=== PATIENT | female | born 1960 | race Caucasian/White ===

== ENCOUNTER 2022-04-10 08:59 | Outpatient (CLI) | payer BC, SELFPAY ==
[2022-04-10 12:18] LABS: Albumin* 4.2 g/dL (3.3-5.0); Chloride* 108 mmol/L (96-114)
[2022-04-10 12:19] LABS: Sodium* 139 mmol/L (135-149)
[2022-04-10 12:20] LABS: Potassium* 4.9 mmol/L (3.6-5.1)
[2022-04-10 12:21] LABS: Cholesterol* 233 mg/dL (90-199); Creatinine* 0.7 mg/dL (0.5-1.5); Estimated Glomerular Filt Rate 100 ml/min
[2022-04-10 12:22] LABS: Alanine Aminotransferase* 19 U/L (4-35); Alkaline Phosphatase* 39 U/L (40-150); Aspartate Amino Transferase* 24 U/L (12-35); Bilirubin Total* 0.8 mg/dL (0.1-1.5); Blood Urea Nitrogen* 15 mg/dL (7-30); Carbon Dioxide* 26 mmol/L (20-32); Glucose* 90 mg/dL (60-115); Triglycerides* 83 mg/dL (40-149)
[2022-04-10 12:23] LABS: Calcium* 9.2 mg/dL (8.4-10.6); HDL Cholesterol* 54 mg/dL (>=50); LDL Cholesterol Calculated 162 mg/dL (<100)
[2022-04-10 12:25] LABS: C Reactive Protein* 0.6 mg/dL (0.5-1.0)
[2022-04-10 12:55] LABS: Hepatitis C Virus Antibody* Negative (Negative)
[2022-04-12 09:23] LABS: Anti-Nuclear Ab(ANA)IgG ELISA None Detected (None Detected)
== END 2022-04-10 09:00 | disposition home or self-care (01) ==
PROVIDERS: Visit Provider Family Medicine
DX: Z00.00 Encounter for general adult medical examination without abnormal findings (principal); R63.5 Abnormal weight gain; R53.83 Other fatigue; E05.90 Thyrotoxicosis, unspecified without thyrotoxic crisis or storm; M25.50 Pain in unspecified joint; Z11.59 Encounter for screening for other viral diseases; Z13.6 Encounter for screening for cardiovascular disorders
CPT/HCPCS: 80053; 80061; 84443; 86039; 86140; 86803

== ENCOUNTER 2022-06-12 14:46 | Outpatient (CLI) | payer BC, SELFPAY ==
--- NOTE | 2022-06-12 15:00 | CRLHL7_ITS ---
For Patients: As a result of the Century Cures Act, medical imaging exams and procedure reports are released immediately into your electronic medical record. You may view this report before your referring provider. If you have questions, please contact your health care provider. BILATERAL SCREENING MAMMOGRAM WITH COMPUTER-AIDED DETECTION AND TOMOSYNTHESIS TECHNIQUE: CC and MLO views were obtained. These mammographic images have been obtained using full-field digital technique. These mammographic images were interpreted with the benefit of computer-aided detection. Breast Tomosynthesis was used in this interpretation. COMPARISON FILM: 12/19/19. FINDINGS: The breasts are heterogeneously dense, which may obscure small masses IMPRESSION: There is no radiographic evidence for malignancy. ASSESSMENT: BI-RADS Category 1: Negative RECOMMENDATION: Routine screening mammogram in 1 year. A lay language report of this examination will be provided to the patient. Reginaldo Chris M.D. Diagnostic Radiologist [email or web address] DIANA/Dictated by: Reginaldo Chris MD @ 06/13/2022 8:46:00 AM (Electronically Signed)
== END 2022-06-12 14:47 | disposition home or self-care (01) ==
LOC: MAMMO 14:47
PROVIDERS: Visit Provider Obstetrics & Gynecology
DX: Z12.31 Encounter for screening mammogram for malignant neoplasm of breast (principal); R92.2 Inconclusive mammogram
CPT/HCPCS: 77063; 77067

== ENCOUNTER 2023-01-05 19:10 | Outpatient (CLI) | payer BC, SELFPAY ==
--- NOTE | 2023-01-13 08:23 | W.PM.SLEEP ---
Sleep Study Details Details Interpreting Provider: Gagandeep Date of Sleep Study: 01/05/23 Sleep Study Details: STUDY TYPE:? Home unattended ? BMI:? 25.8 ORDERING PROVIDER:So Donis INDICATION:? Concerns about sleep apnea ? SLEEP SUMMARY:? 519 minutes monitored RESPIRATORY SUMMARY:? AHI 3.5, supine AHI 7.4, left lateral 2.1, right lateral 1.3 Low oxygen 87 4.6% of the study or 24 minutes oxygen was below 90% Snoring 23.4% PERIODIC LIMB MOVEMENTS OF SLEEP:? Not recorded during home study CARDIAC:? Range 58-93, mean 67.6 IMPRESSION:? The overall study is within normal limits however the patient has mild sleep apnea in the supine position and also significant desaturations with 4.6% of the study oxygen level was less than 90%. RECOMMENDATION: Would recommend trial of nonsupine sleep. If the patient tolerates that I would recommend a repeat overnight oximetry.
== END 2023-01-05 19:11 | disposition home or self-care (01) ==
LOC: SLEEP 19:11
PROVIDERS: Visit Provider Otolaryngology
DX: G47.33 Obstructive sleep apnea (adult) (pediatric) (principal)
CPT/HCPCS: 95806

== ENCOUNTER 2023-06-15 14:51 | Outpatient (CLI) | payer BC, SELFPAY ==
--- NOTE | 2023-06-15 15:20 | MM_ITS ---
Patient: CANDELARIA AVENDAÑO Facility:?[facility] Patient ID:?[id number] Site Patient ID:?[id number]. Site :?[id number] Study:?XRay-Breast Bilateral 3D W/CAD-06/15/2023 3:23:29 PM Ordering Physician:El Martínez Final Report: BILATERAL SCREENING MAMMOGRAM WITH COMPUTER-AIDED DETECTION AND TOMOSYNTHESIS TECHNIQUE: CC and MLO views were obtained. These mammographic images have been obtained using full-field digital technique. These mammographic images were interpreted with the benefit of computer-aided detection. Breast Tomosynthesis was used in this interpretation. COMPARISON FILM: 06/12/22, 12/19/19. FINDINGS: There are scattered areas of fibroglandular density. IMPRESSION: There is no radiographic evidence for malignancy. ASSESSMENT: BI-RADS Category 1: Negative RECOMMENDATION: Routine screening mammogram in 1 year. A lay language report of this examination will be provided to the patient. Reginaldo Chris M.D. Diagnostic Radiologist [email or web address] AWA/sp R& Transcribed: 2:17 p.m. SP/Dictated by: Reginaldo Chris MD @ 06/16/2023 8:46:00 AM Signed by:?Reginaldo Chris MD @06/16/2023 3:20:09 PM (Electronic Signature)
== END 2023-06-15 14:52 | disposition home or self-care (01) ==
LOC: MAMMO 14:53
PROVIDERS: PCP Family Medicine; Visit Provider Orthopaedic Surgery
DX: Z12.31 Encounter for screening mammogram for malignant neoplasm of breast (principal)
CPT/HCPCS: 77063; 77067

== ENCOUNTER 2023-10-14 08:08 | Outpatient (CLI) | payer BC, SELFPAY ==
--- NOTE | 2023-10-14 08:30 | CRLHL7_ITS ---
For Patients: As a result of the Century Cures Act, medical imaging exams and procedure reports are released immediately into your electronic medical record. You may view this report before your referring provider. If you have questions, please contact your health care provider. DXA BONE MINERAL DENSITY STUDY Reason for exam: Screening. Family history of osteoporosis. Current height (in): 66. Weight (lb): 145. Menopause age: 62. Ethnicity: White. 1. Have you had a previous hip or vertebral fracture? No. 2. Have you had any fractures during your adult life which did not result from significant trauma (e.g., auto accident)? No. 3. Did either of your parents have a hip fracture? No. 4. Do you smoke? No. 5. Have you ever taken Glucocorticoids? No. 6. Do you have rheumatoid arthritis? No. 7. Do you have secondary osteoporosis? No. 8. Do you drink 3 or more alcoholic drinks per day? No. 9. Are you being treated for osteoporosis? No. 10. Have you ever taken any of the following medications: Actonel, Evista, Fosamax, Miacalcin, Reclast, Boniva, Forteo, HRT (i.e., estrogen/hormone therapy), Protelos, Prolia, Vitamin D, Calcium, other ??? please specify. ANSWER: Yes, vitamin D, HRT (i.e., estrogen/hormone therapy), and calcium. 11. Do you have any of the following medical conditions: Anorexia or bulimia, asthma or emphysema, end stage renal disease, hyperparathyroidism, any seizure disorders, cancer, inflammatory bowel diseases, hysterectomy, other ??? please specify. ANSWER: Yes, hysterectomy. 12. What was your maximum height (inches)? 66. 13. Do you perform weight bearing exercise regularly? Yes. 14. Do you regularly consume dairy products? Yes. 15. Do you drink caffeinated beverages? Yes. 16. At what age did your period start? 19. 17. Are you premenopausal? No. 18. How many full-term pregnancies have you had? 2. 19. Have you ever missed your period for more than 6 months in a row (not including or menopause)? No. TECHNIQUE: Bone mineral density study was performed using the [employer]. FINDINGS: The results of the study expressed as bone mineral density (BMD) are as follows: Lumbar spine L1 to L3: BMD: 1.002 g/cm2. T-score: -0.1. Z-score: 1.3 Neck Left: BMD: 0.775 g/cm2. T-score: -0.7. Z-score: 0.7 Right: BMD: 0.705 g/cm2. T-score: -1.3. Z-score: 0.0 Total Left: BMD: 0.865 g/cm2. T-score: -0.6. Z-score: 0.4 Right: BMD: 0.847 g/cm2. T-score: -0.8. Z-score: 0.2 IMPRESSION: Osteopenia. *Comparison exams done prior to 08/2019 were performed on different unit, [employer]. FRAX 10-year Fracture Risk Major Osteoporotic Fracture: <0.1% Hip Fracture: <0.1% Reported Risk Factors: [place] () Neck BMD=0.705, BMI=23.4.23.4. Reginaldo Chris M.D. Diagnostic Radiologist [email or web address] AWA/stef finch/Dictated by: Reginaldo Chris MD @ 10/15/2023 12:54:00 PM (Electronically Signed)
== END 2023-10-14 08:09 | disposition home or self-care (01) ==
LOC: RAD 08:09
PROVIDERS: PCP Family Medicine; Visit Provider Registered Nurse
DX: M81.0 Age-related osteoporosis without current pathological fracture; Z78.0 Asymptomatic menopausal state
CPT/HCPCS: 77080

== ENCOUNTER 2024-03-15 11:11 | Emergency (ER) | payer OTHER, SELFPAY ==
[2024-03-15 11:11] VITALS: BP 94/36; PULSE 85; RESP 20; O2SAT 95
[2024-03-15 11:34] VITALS: BP 94/67; PULSE 75; RESP 18; TEMP 36.3; O2SAT 98; BMI 25.0
[2024-03-15 16:34] VITALS: BP 97/49; PULSE 68; RESP 18; TEMP 36.3; O2SAT 94
--- NOTE | 2024-03-15 16:47 | ED_ITS ---
HPI - General Adult General Chief complaint: Nausea/Vomiting Stated complaint: Vomiting Time Seen by Provider: 03/15/24 16:27 History of Present Illness HPI narrative: This 63-year-old female states that she woke up this morning at 4:00 a.m. with a severe headache. She has had vomiting recurring about every 1/2 hour since then. She has some sensitivity to light. She states that she does get headaches on occasion but this 1 is more severe. She does not report any neurologic deficits and arrives here with normal vital signs. Related Data Home Medications ?Medication ?Instructions ?Recorded ?Confirmed fluoxetine 10 mg capsule 10 mg PO DAILY 08/12/23 03/15/24 Previous Rx's ?Medication ?Instructions ?Recorded methocarbamol 1,000 mg tablet 1,000 mg PO QHS #20 tabs 03/10/24 methylprednisolone 4 mg tablets in See Rx Instructions PO PER PKG DIR 03/10/24 a dose pack #21 ea Allergies Allergy/AdvReac Type Severity Reaction Status Date / Time sumatriptan Allergy Intermediate SOB Verified 03/15/24 11:40 Penicillins Allergy hives Verified 03/15/24 11:40 Review of Systems Status of ROS: Reports: 10 or more systems reviewed and unremarkable except as noted in History and below Narrative: Constitutional: No fevers, no weight gain or loss. Eyes: No discharge. No vision changes. HENT: No congestion, no sore throat, no ear pain. Cardiovascular: No chest pain, no palpitations. Respiratory: No shortness of breath, no wheezes, no cough. Gastrointestinal: No abdominal pain, no diarrhea. Nausea with vomiting. Genitourinary: No dysuria, no hematuria. Musculoskeletal: Normal range of motion. Skin: No rashes, no pruritis. Neurological: No dizziness, weakness, sensory change, speech change. Endo/Heme/Allergies: No bruising or bleeding. No polydipsia. Pysch: no suicidality, no anxiety, no insomnia. All other systems reviewed and are negative. [facility] Medical History Vasomotor symptoms due to menopause ?N95.1 - Menopausal and female climacteric states (ICD-10) Lesion of finger ?L98.9 - Disorder of the skin and subcutaneous tissue, unspecified (ICD-10) Perimenopausal disorder ?N95.9 - Unspecified menopausal and perimenopausal disorder (ICD-10) History of vitamin D deficiency ?Z86.39 - Personal history of other endocrine, nutritional and metabolic dis ease (ICD-10) Headache ?R51.9 - Headache, unspecified (ICD-10) Surgical History Status post colposcopy (07/23/22) ?Z98.890 - Other specified postprocedural states (ICD-10) Status post biopsy of skin ?Z98.890 - Other specified postprocedural states (ICD-10) History of partial hysterectomy ?Z90.711 - Acquired absence of uterus with remaining cervical stump (ICD-10) History of laser assisted in situ keratomileusis ?Z98.890 - Other specified postprocedural states (ICD-10) History of arthroscopy of right shoulder ?Z98.890 - Other specified postprocedural states (ICD-10) Family History (Updated 08/13/23 @ 11:10 by Antonina Greer CNP) Mother Lung cancer Stroke Melanoma COPD (chronic obstructive pulmonary disease) High blood pressure Heart disease Osteoporosis Father Prostate cancer High blood pressure Brother Heart disease Grandmother Osteoporosis Social History Narrative: Does not use illicit drugs Former smoker Social alcohol use What is your current living situation?: I presently have a place to live Problems where you live: no known problems In the past 12 months, utilities in danger of being shut off: no In past 12 months, lack of transportation kept you from medical appts, meetings, work, or getting things needed for daily living: no In the past 12 mos, have been you worried that your food would run out before you had money to buy more?: never true In the past 12 mos, the food you bought just didn't last and you didn't have money to buy more?: never true Smoking Status: Former smoker Do you use any of these nicotine containing products: None How often do you have a drink containing alcohol: monthly or less AUDIT-C Alcohol total score: 1 Non-prescribed substance use: denies use How often does anyone, including family, friends and others, physically hurt you : never How often does anyone, including family, friends and others, insult or talk down to you: never How often does anyone, including family, friends and others, threaten you with harm: never How often does anyone, including family, friends and others, scream or curse at you: never Exam Narrative: Exam Narrative: Constitutional: Well-developed, well-nourished, no acute distress. HEENT: Normocephalic, atraumatic. Neck: Normal range of motion. Nontender. Supple. Heart: Intact distal pulses. Lungs: No chest discomfort. No wheezes, rhonchi, or rales. Abdomen: Nontender. Back: Normal range of motion. Extremities: Normal range of motion. No injury. Skin: Intact. No rash. Warm. No erythema or pallor. Neurologic: No altered sensation. No weakness. Alert and oriented. Psychiatric: No suicidality. No anxiety or depression. No insomnia. Nursing notes and vitals signs are reviewed. Const: Vital Signs, click to edit/add: Vital Signs - 24 hr 03/15/24 11:34 03/15/24 16:34 03/15/24 18:57 Temperature 97.3 F L 97.3 F L Pulse Rate [Pulse Oximeter] 75 68 86 Respiratory Rate 18 18 Blood Pressure [Ri ght Upper Arm] 94/67 97/49 L 91/73 Pulse Oximetry 98 94 99 Oxygen Delivery Me thod Room Air Room Air Course Vital Signs Vital signs: Initial Vital Signs Temperature 97.3 F L 03/15/24 11:34 Temperature Source Temporal Artery Scan 03/15/24 11:34 Pulse Rate 75 03/15/24 11:34 Pulse Rhythm Regular 03/15/24 11:34 Respiratory Rate 18 03/15/24 11:34 Blood Pressure 94/67 03/15/24 11:34 Blood Pressure Mean 76 03/15/24 11:34 Blood Pressure Position Sitting 03/15/24 11:34 Pulse Oximetry 98 03/15/24 11:34 Oxygen Delivery Method Room Air 03/15/24 11:34 Vital Signs Temperature 97.3 F L 03/15/24 11:34 Pulse Rate 75 03/15/24 11:34 Respiratory Rate 18 03/15/24 11:34 Blood Pressure 94/67 03/15/24 11:34 Pulse Oximetry 98 03/15/24 11:34 Oxygen Delivery Method Room Air 03/15/24 11:34 Temperature 97.3 F L 03/15/24 16:34 Pulse Rate 86 03/15/24 18:57 Respiratory Rate 18 03/15/24 16:34 Blood Pressure 91/73 03/15/24 18:57 Pulse Oximetry 99 03/15/24 18:57 Oxygen Delivery Method Room Air 03/15/24 16:34 Medications Administered Medications: Discontinued Medications Generic Name Dose Route Start Last Admin Trade Name Caitlyn PRN Reason Stop Dose Admin Diphenhydramine HCl 50 mg 03/15/24 16:45 03/15/24 18:26 Diphenhydramine 50 Mg/Ml Inj IVP 03/15/24 16:46 50 mg ONCE ONE Administration Sodium Chloride 1,000 mls @ 1,000 mls/hr 03/15/24 16:45 03/15/24 18:23 0.9 % Sodium Chloride 1000 Ml IV 03/15/24 17:44 1,000 mls/hr .Q1H ENEIDA Administration Ketorolac Tromethamine 15 mg 03/15/24 16:45 03/15/24 18:25 Ketorolac 30 Mg/Ml Inj IVP 03/15/24 16:46 15 mg ONCE ONE Administration Ondansetron HCl 4 mg 03/15/24 16:45 03/15/24 18:23 Ondansetron 2 Mg/Ml Inj IVP 03/15/24 16:46 4 mg ONCE ONE Administration Medical Decision Making MDM Narrative Medical decision making narrative: This patient comes in with symptoms typical of a migraine headache. She has had recurrent vomiting and does have light sensitivity. She is not exhibiting any neurologic deficits. She does have a history of headaches but this 1 is more persistent and intense. An IV was established where she received a L of normal saline, Toradol 15 mg, Benadryl 50 mg, and Zofran 4 mg. She states that she is feeling sufficiently better. She did also receive methylprednisolone 125 mg intravenously. She is okay to be discharged home. I did provide [facility] prescriptions for Zofran and Toradol. Discharge Plan Discharge Clinical Impression: Migraine Patient Disposition: Home, Self-Care Condition: Improved Additional Instructions: Take medications as needed and directed. Follow up with MD return if worsening. Prescriptions: No Action fluoxetine 10 mg capsule 10 mg PO DAILY methylprednisolone 4 mg tablets,dose pack See Rx Instructions PO PER PKG DIR Qty: 21 0RF Rx Instructions: PO PER PKG DIR methocarbamol 1,000 mg tablet 1,000 mg PO QHS Qty: 20 0RF Rx Instructions: Do not drive or operate heavy equipment until you know how this medication will impact you. OK to titrate up to one tablet every 8 hours if tolerating. Follow Up/Referrals: Angelic Salguero MD [Primary Care Provider] - Stand Alone Forms: CoNarrative Info Instructions
[2024-03-15] MEDS: 0.9 % SODIUM CHLORIDE 1000 ml 1,000 ML IV (18:23)
[2024-03-15] MEDS: ONDANSETRON 2 MG/ML inj 4 MG IVP (18:23)
[2024-03-15] MEDS: KETOROLAC 30 MG/ML inj 15 MG IVP (18:25)
[2024-03-15] MEDS: diphenhydrAMINE 50 MG/ML inj IVP (18:26)
[2024-03-15 18:57] VITALS: BP 91/73; PULSE 86; O2SAT 99
[2024-03-15] MEDS: METHYLPREDNISOLONE SOD SUCC 62.5 MG/ML (125) 125 MG IVP (19:30)
== END 2024-03-15 19:38 | disposition home or self-care (01) ==
PROVIDERS: Emergency Provider Emergency Medicine Emergency Medical Services; PCP Family Medicine
DX: G43.909 Migraine, unspecified, not intractable, without status migrainosus (principal)
CPT/HCPCS: 96374; 96375; 99284; J1200; J1885; J2405; J2919; J7030

== ENCOUNTER 2024-10-23 12:36 | Outpatient (CLI) | payer OTHER, SELFPAY | END 2024-10-23 12:37 | disposition home or self-care (01) | PROVIDERS: Visit Provider Nurse Practitioner Family | DX: Z79.899 Other long term (current) drug therapy (principal); Z86.39 Personal history of other endocrine, nutritional and metabolic disease | CPT/HCPCS: 82306; 82728; 83540; 83550 ==